=== PATIENT | female | born 1965 | race Caucasian/White ===

== ENCOUNTER 2017-04-19 08:00 | Day surgery (SDC) | payer SELFPAY ==
[2017-04-19 08:30] VITALS: TEMP 97.6
[2017-04-19] MEDS: ALPRAZolam 0.5 MG TAB PO ONE (08:49)
[2017-04-19 08:50] LABS: Mean Platelet Volume 7.1
[2017-04-19 09:02] LABS: Prothrombin Time 10.3 sec (9.0-12.0)
--- NOTE | 2017-04-19 09:57 | XR ---
EXAMINATION TYPE: XR chest 1V portable DATE OF EXAM: 04/19/2017 COMPARISON: April 14, 2017 HISTORY: Left-sided thoracentesis TECHNIQUE: Single frontal view of the chest is obtained. FINDINGS: Since the prior study there has been prominent reduction in the volume of the left pleural effusion. There is no pneumothorax. The mediastinum is midline. On the right, there is a small pleural effusion. Lungs are negative, other than nonvisualization of the lower lobes due to the pleural effusions, left greater than right. Mediastinum and bones and soft tissues are also unremarkable. IMPRESSION: POST LEFT THORACENTESIS, WITHOUT PNEUMOTHORAX.
--- NOTE | 2017-04-19 10:05 | US ---
810 cc's of fluid drained from left chest by Dr. Ramos Ultrasound-guided therapeutic and diagnostic thoracentesis DATE OF EXAM: 04/19/2017 CLINICAL HISTORY: Thoracentesis for left pleural effusion The procedure was discussed with the patient. The risks, complications, benefits, and alternatives we re discussed and any questions were answered. Informed consent was obtained. The patient was placed supine on the ultrasound table and prepped and draped in the usual sterile fas hion. All elements of maximal barrier and sterile technique were utilized. Under ultrasound guidance, access into the pleural space was obtained, via the thoracentesis catheter system and direct ultrasound guidance. Ap proximately 0.75 liters of straw-colored fluid was removed. The patient was stable throughout the procedure and remained stable upon discharge from Department of Radiology. Sample sent to pathology for analysis. IMPRESSION: 1. Successful therapeutic and diagnostic thoracentesis under ultrasound guidance.
[2017-04-19 10:28] VITALS: BP 118/74; PULSE 76; RESP 16
[2017-04-19 13:57] LABS: RBC, Body Fluid 38 /uL
[2017-04-19 15:59] LABS: Glucose, BF Source Pleural Fluid; LDH, Body Fluid Source Pleural Fluid; T. Protein, Body Fluid Source Pleural Fluid; Total Protein, Body Fluid 3200 mg/dL
== END 2017-04-19 10:39 | disposition home or self-care (01) ==
LOC: RADPROMAIN 08:00
PROVIDERS: ATTEND Internal Medicine Critical Care Medicine
DX: J90 Pleural effusion, not elsewhere classified (principal); C77.9 Secondary and unspecified malignant neoplasm of lymph node, unspecified; Z85.3 Personal history of malignant neoplasm of breast
CPT/HCPCS: 32555; 71010; 82945; 83615; 84157; 85049; 85610; 87070; 87075; 87205; 88108; 88305; 88341; 88342; 89050

== ENCOUNTER 2021-02-18 09:07 | Day surgery (SDC) | payer MEDICARE, OTHER ==
[2021-02-18 09:46] LABS: Mean Platelet Volume 7.3; Platelet Count 272 k/uL (150-450)
[2021-02-18 09:53] LABS: Prothrombin Time 10.6 sec (9.0-12.0)
[2021-02-18 10:06] VITALS: RESP 18; TEMP 97.9
--- NOTE | 2021-02-18 11:13 | XR ---
EXAMINATION TYPE: XR chest 1V portable DATE OF EXAM: 02/18/2021 COMPARISON: This x-ray 04/19/2017 HISTORY: Left pleural effusion, status post thoracentesis TECHNIQUE: Single frontal view of the chest is obtained. FINDINGS: Findings are similar to prior exam. Catheter was placed in the interval, distal tip coursi ng towards the right atrium. There is improved visualization of the right costophrenic angle. No evid ent pneumothorax. No other significant interval change. IMPRESSION: No evident complication status post left thoracentesis
[2021-02-18 11:44] VITALS: BP 105/64; PULSE 67
--- NOTE | 2021-02-18 16:23 | US ---
EXAMINATION TYPE: US thoracentesis DATE OF EXAM: 02/18/2021 COMPARISON: NONE HISTORY: Pleural effusion. FINDINGS: Maximal barrier technique was utilized. The skin overlying a suitable pocket of fluid was localized and the overlying skin prepped and draped. Lidocaine was used for local anesthesia. Ultras ound was used with sterile technique. A 5 Swedish catheter over guide needle was advanced into the pl eural fluid collection using ultrasound guidance and the catheter advanced, needle removed. Approxim ately 0.5 liter(s) of serous fluid was removed. Catheter was withdrawn and hemostasis achieved. The re is no immediate complication. The patient discharged in stable condition without complication. IMPRESSION: STATUS POST ULTRASOUND GUIDED THORACENTESIS, POST PROCEDURE CHEST X-RAY PENDING. THIS GA OCEDURE WAS PERFORMED BY THE UNDERSIGNED.
== END 2021-02-18 11:40 | disposition home or self-care (01) ==
LOC: RADPROMAIN 09:07
PROVIDERS: ATTEND Internal Medicine Medical Oncology
DX: J90 Pleural effusion, not elsewhere classified (principal)
CPT/HCPCS: 32555; 36415; 71045; 85049; 85610

== ENCOUNTER → 2022-04-14 | Outpatient (CLI) | payer MEDICARE, OTHER ==
--- NOTE | 2022-04-15 10:10 | CA ---
Transthoracic Echo Report Name: Sherice Estevez Age: 57 Gender: F : 1965 Exam Date: 04/14/2022 11:59 Exam Location: [place] [facility] Ht (in): 66 Wt (lb): 170 Ordering Physician: Eduardo Mari MD Attending/Referring Phys: Toy Assembler Wood Donna Stephens RDCS Procedure CPT: Indications: Z01.818 PREPROCEDUREAL EXAM Cardiac Hx: Technical Quality: Fair Contrast 1: Total Dose (mL): Contrast 2: Total Dose (mL): MEASUREMENTS (Male / Female) Normal Values 2D ECHO LV Diastolic Diameter PLAX 4.1 cm 4.2 - 5.9 / 3.9 - 5.3 cm LV Systolic Diameter PLAX 2.9 cm IVS Diastolic Thickness 0.9 cm 0.6 - 1.0 / 0.6 - 0.9 cm LVPW Diastolic Thickness 1.1 cm 0.6 - 1.0 / 0.6 - 0.9 cm LV Relative Wall Thickness 0.5 RV Internal Dim ED PLAX 3.4 cm LA Volume 41.8 cm??? 18 - 58 / 22 - 52 cm??? M-MODE Aortic Root Diameter MM 2.7 cm LA Systolic Diameter MM 2.7 cm LA Ao Ratio MM 1.0 AV Cusp Separation MM 1.8 cm DOPPLER LVOT Peak Velocity 101.4 cm/s LVOT Peak Gradient 4.1 mmHg MV Area PHT 4.5 cm??? Mitral E Point Velocity 53.7 cm/s Mitral A Point Velocity 65.7 cm/s Mitral E to A Ratio 0.8 MV Deceleration Time 169.5 ms TR Peak Velocity 205.0 cm/s TR Peak Gradient 16.8 mmHg Right Ventricular Systolic Press 21.8 mmHg FINDINGS Left Ventricle Normal Left ventricular size, wall thickness, systolic function with no obvious regional wall motion abnormalities. Normal Left ventricular diastolic filling pattern. Left ventricular ejection fraction is estimated at 50 to 55% Right Ventricle Mild right ventricular dilatation. Right ventricular systolic pressure within normal limits. Right Atrium Normal right atrial size. Left Atrium Normal left atrial size. No evidence for an atrial septal defect. Mitral Valve Structurally normal mitral valve. No mitral stenosis, regurgitation or prolapse. Aortic Valve Trileaflet aortic valve. No aortic valve stenosis or regurgitation. Tricuspid Valve Structurally normal tricuspid valve. Trace to mild tricuspid regurgitation. Pulmonic Valve Trace pulmonic regurgitation. Pericardium No pericardial effusion. Aorta Normal size aortic root and proximal ascending aorta. CONCLUSIONS #1. Normal left ventricular size with preserved LV function. #2. Mild right ventricular dilatation. #3. Normal valvular excursion Previewed by: Dr. Caitlin Mayers MD (Electronically Signed) Final Date: 15 April 2022 10:09
== END | disposition home or self-care (01) ==
LOC: RADECHMAIN 11:59
PROVIDERS: ATTEND Internal Medicine Hematology & Oncology
DX: I51.7 Cardiomegaly (principal)
CPT/HCPCS: 93306

== ENCOUNTER → 2023-02-21 | Outpatient (CLI) | payer MEDICARE, OTHER ==
--- NOTE | 2023-02-21 18:04 | CA ---
Transthoracic Echo Report Name: Sherice Estevez Age: 58 Gender: F : 1965 Exam Date: 02/21/2023 13:25 Exam Location: [place] [facility] Ht (in): 66 Wt (lb): 168 Ordering Physician: Eduardo Mari MD Attending/Referring Phys: Computer Assembler Donna Stephens RDCS Procedure CPT: Indications: Z01.818 Chemo Cardiac Hx: Technical Quality: Fair Contrast 1: Total Dose (mL): Contrast 2: Total Dose (mL): MEASUREMENTS (Male / Female) Normal Values 2D ECHO LV Diastolic Diameter PLAX 4.4 cm 4.2 - 5.9 / 3.9 - 5.3 cm LV Systolic Diameter PLAX 3.2 cm IVS Diastolic Thickness 1.0 cm 0.6 - 1.0 / 0.6 - 0.9 cm LVPW Diastolic Thickness 1.0 cm 0.6 - 1.0 / 0.6 - 0.9 cm LV Relative Wall Thickness 0.5 RV Internal Dim ED PLAX 3.6 cm LA Volume 64.0 cm??? 18 - 58 / 22 - 52 cm??? M-MODE Aortic Root Diameter MM 2.7 cm LA Systolic Diameter MM 3.4 cm LA Ao Ratio MM 1.3 AV Cusp Separation MM 2.0 cm DOPPLER AV Peak Velocity 120.3 cm/s AV Peak Gradient 5.8 mmHg AV Mean Velocity 81.6 cm/s AV Mean Gradient 2.9 mmHg AV Velocity Time Integral 23.6 cm LVOT Peak Velocity 107.3 cm/s LVOT Peak Gradient 4.6 mmHg LVOT Velocity Time Integral 19.7 cm MV Area PHT 2.7 cm??? Mitral E Point Velocity 49.5 cm/s Mitral A Point Velocity 49.1 cm/s Mitral E to A Ratio 1.0 MV Deceleration Time 285.8 ms MV E' Velocity 6.8 cm/s Mitral E to MV E' Ratio 7.3 TR Peak Velocity 219.2 cm/s TR Peak Gradient 19.2 mmHg Right Ventricular Systolic Press 23.9 mmHg FINDINGS Left Ventricle Mildly increased left ventricular wall thickness. Left ventricular cavity size normal. Normal left ventricular systolic function with no obvious regional wall motion abnormalities. Left ventricular ejection fraction is estimated at 55- 60%. Right Ventricle Mild right ventricular dilatation. Right ventricular systolic pressure within normal limits. Right Atrium Normal right atrial size. Left Atrium Moderately increased left atrial volume. Mildly increased left atrial area. Mitral Valve Structurally normal mitral valve. Trace to mild mitral regurgitation. Aortic Valve Trileaflet aortic valve. No aortic valve stenosis or regurgitation. Tricuspid Valve Structurally normal tricuspid valve. Mild tricuspid regurgitation. Pulmonic Valve Trace pulmonic regurgitation. Pericardium No pericardial effusion. Aorta Normal size aortic root and proximal ascending aorta. CONCLUSIONS Normal LV systolic function with an ejection fraction of 60% Left atrial enlargement Mild mitral regurgitation Previewed by: Dr. Enrrique Singh MD (Electronically Signed) Final Date: 21 February 2023 18:03
== END | disposition home or self-care (01) ==
LOC: RADECHMAIN 13:21
PROVIDERS: ATTEND Internal Medicine Hematology & Oncology
DX: Z01.818 Encounter for other preprocedural examination (principal); I34.0 Nonrheumatic mitral (valve) insufficiency; C50.811 Malignant neoplasm of overlapping sites of right female breast; G62.0 Drug-induced polyneuropathy; R53.82 Chronic fatigue, unspecified; D51.9 Vitamin B12 deficiency anemia, unspecified
CPT/HCPCS: 93306

== ENCOUNTER → 2023-05-13 | Outpatient (CLI) | payer MEDICARE, OTHER ==
--- NOTE | 2023-05-14 13:49 | PE ---
EXAMINATION TYPE: PET CT fusion skull to thigh DATE OF EXAM: 05/13/2023 CLINICAL INDICATION:Female, 58 years old with history of C50.811; TECHNIQUE: Following the intravenous administration of 11.3 mCi of F-18 FDG, whole body images are performed from the skull base to the midthigh. Images are reviewed on the computer in the coronal, a xial, and sagittal planes. Reconstructed rotating images are created on independent workstation and reviewed on the computer. A non-contrast CT is performed in conjunction with the PET scan. Glucose level 81 mg/dL COMPARISON: CT None, PET/CT None, FINDINGS: Mediastinal SUV mean is 1.6. Hepatic parenchyma SUV mean is 2.6. SKULL BASE AND NECK: No suspicious radiotracer activity. CHEST, MEDIASTINUM, AND HILAR REGION: No suspicious radiotracer activity. ABDOMEN AND PELVIS: No suspicious radiotracer activity. MUSCULOSKELETAL STRUCTURES: No suspicious radiotracer activity. Right sacroiliac sclerotic lesion krysten suring 24 x 18 mm Max SUV 1.2. Other areas of sclerotic likely metastatic disease do not demonstrate increased FDG activity including areas of the spine including T6 and T7 vertebral bodies are in metab olic. Max SUV 1.6 and [address]: Bilateral breast implants which appear intact. There is left chest wall [id number] with tip terminating in the superior vena cava. Trace left pleural effusion.7 streaky atelectasis in lung bases. IMPRESSION: 1. No suspicious radiotracer activity. 2. Sclerotic areas within the osseous structures including T6, T7 vertebral body and the the right i liac bone are without elevated metabolic activity . No evidence for lymphadenopathy.
== END | disposition home or self-care (01) ==
LOC: RADPETMAIN 15:36
PROVIDERS: ATTEND Internal Medicine Hematology & Oncology
DX: C50.811 Malignant neoplasm of overlapping sites of right female breast (principal)
CPT/HCPCS: 78815; A9552

== ENCOUNTER → 2023-09-13 | Outpatient (CLI) | payer MEDICARE, OTHER ==
--- NOTE | 2023-09-14 07:18 | CA ---
Transthoracic Echo Report Name: Sherice Estevez Age: 58 Gender: F : 1965 Exam Date: 09/13/2023 13:11 Exam Location: [place] [facility] Ht (in): 66 Wt (lb): 159 Ordering Physician: Eduardo Mari MD Attending/Referring Phys: Mechanical Pencils Assembler Jennifer Rivas RDCS Procedure CPT: Indications: C50.811 breast ca Cardiac Hx: Technical Quality: Good Contrast 1: Total Dose (mL): Contrast 2: Total Dose (mL): MEASUREMENTS (Male / Female) Normal Values 2D ECHO LV Diastolic Diameter PLAX 4.3 cm 4.2 - 5.9 / 3.9 - 5.3 cm LV Systolic Diameter PLAX 3.1 cm IVS Diastolic Thickness 1.0 cm 0.6 - 1.0 / 0.6 - 0.9 cm LVPW Diastolic Thickness 1.1 cm 0.6 - 1.0 / 0.6 - 0.9 cm LV Relative Wall Thickness 0.5 RV Internal Dim ED PLAX 3.0 cm LA Systolic Diameter LX 3.5 cm 3.0 - 4.0 / 2.7 - 3.8 cm LV Diastolic Volume MOD BP 72.7 cm??? 67 - 155 / 56 - 104 cm??? LV Systolic Volume MOD BP 38.3 cm??? 22 - 58 / 19 - 49 cm??? LV Ejection Fraction MOD BP 47.2 % >= 55 % LV Cardiac Index MOD BP 1060.8 cm???/min???m??? LV Diastolic Volume MOD 4C 75.5 cm??? LV Systolic Volume MOD 4C 27.5 cm??? LV Ejection Fraction MOD 4C 63.6 % LV Cardiac Index MOD 4C 1484.8 cm???/min???m??? LV Diastolic Length 4C 7.2 cm LV Systolic Length 4C 5.8 cm LV Diastolic Volume MOD 2C 67.5 cm??? LV Systolic Volume MOD 2C 45.8 cm??? LV Ejection Fraction MOD 2C 32.2 % LV Cardiac Index MOD 2C 672.5 cm???/min???m??? LV Diastolic Length 2C 6.9 cm LV Systolic Length 2C 6.8 cm LA Volume 50.5 cm??? 18 - 58 / 22 - 52 cm??? LA Volume Index 27.4 cm???/m??? 16 - 28 cm???/m??? M-MODE Aortic Root Diameter MM 3.0 cm MV E Point Septal Separation 0.8 cm AV Cusp Separation MM 2.2 cm DOPPLER AV Peak Velocity 115.3 cm/s AV Peak Gradient 5.3 mmHg MV Area PHT 2.8 cm??? Mitral E Point Velocity 69.0 cm/s Mitral A Point Velocity 55.6 cm/s Mitral E to A Ratio 1.2 MV Deceleration Time 267.1 ms MV E' Velocity 11.1 cm/s Mitral E to MV E' Ratio 6.2 TR Peak Velocity 217.6 cm/s TR Peak Gradient 18.9 mmHg Right Ventricular Systolic Press 22.8 mmHg FINDINGS Left Ventricle Left ventricular ejection fraction is estimated at 55-60 %. Left ventricular cavity size normal. Good LV systolic strain, -21%.normal left ventricular wall motion. Normal left ventricular diastolic filling pattern. Right Ventricle Normal right ventricular size. Right ventricular systolic pressure within normal limits. Right Atrium Normal right atrial size. Left Atrium Normal left atrial size. Mitral Valve Structurally normal mitral valve. mild mitral regurgitation. Aortic Valve Trileaflet aortic valve. No aortic valve stenosis or regurgitation. Tricuspid Valve Structurally normal tricuspid valve. mild tricuspid regurgitation. Pulmonic Valve Structurally normal pulmonic valve. Trace pulmonic regurgitation. Pericardium No pericardial effusion. Aorta Normal size aortic root and proximal ascending aorta. CONCLUSIONS 1. Normal left ventricular systolic function 2. Mild mitral and tricuspid regurgitation with no evidence of pulmonary hypertension Previewed by: Dr. Deena Mendes MD (Electronically Signed) Final Date: 14 September 2023 07:18
== END | disposition home or self-care (01) ==
LOC: RADECHMAIN 13:08
PROVIDERS: ATTEND Internal Medicine Hematology & Oncology
DX: Z01.818 Encounter for other preprocedural examination (principal); C50.811 Malignant neoplasm of overlapping sites of right female breast; I08.1 Rheumatic disorders of both mitral and tricuspid valves
CPT/HCPCS: 93306

== ENCOUNTER → 2023-09-16 | Outpatient (CLI) | payer MEDICARE, OTHER ==
--- NOTE | 2023-09-19 10:28 | PE ---
EXAMINATION TYPE: PET CT fusion skull to thigh DATE OF EXAM: 09/16/2023 COMPARISON: No recent pertinent CT. Prior PET/CT: 05/13/2023 HISTORY: Breast cancer TECHNIQUE: Following the intravenous administration of 10 mCi of F-18 FDG, whole body images are per formed from the skull base to the midthigh. Images are reviewed on the computer in the coronal, axia l, and sagittal planes. Reconstructed rotating images are created on independent workstation and rev iewed on the computer. A localization and attenuation correction CT is performed in conjunction wit h the PET scan. DLP: 285.80 mGycm SCAN: Subsequent Blood glucose: 88 mg/dL Average Mediastinum SUV: 2.3 Average Liver SUV: 1.54 FINDINGS: NECK: There is some focal uptake within the prevertebral space. Image 14, SUV 4.04. There is increased uptake at the level of the vocal cords. This could be related to phonation. Direc t visualization can be performed as clinically indicated. THORAX: There is a focus of radiotracer within the right suprahilar region, image 79, SUV 3.65. There may be some subtle left hilar uptake, image 82, SUV 3.66. ABDOMEN: No abnormal uptake PELVIS: No abnormal uptake OSSEOUS STRUCTURES: Normal abnormal uptake LOCALIZATION CT: Bilateral breast prostheses are present. COMPARISON: Significant interval change. The uptake in the hilar regions slightly more apparent on th e current examination which may be technical in nature. IMPRESSION: 1. Subtle uptake within the bilateral hilar regions. This is nonspecific and could be related to mild inflammatory change. Early metastasis is not excluded. Monitoring is recommended. 2. Uptake at the level of vocal cord level likely related formation. Direct visualization as clinical ly indicated. 3. Focal uptake in the prevertebral space near the level of the torus tubarius and uncertain signific ance.
== END | disposition home or self-care (01) ==
LOC: RADPETMAIN 07:53
PROVIDERS: ATTEND Internal Medicine Hematology & Oncology
DX: C50.811 Malignant neoplasm of overlapping sites of right female breast (principal); R93.7 Abnormal findings on diagnostic imaging of other parts of musculoskeletal system
CPT/HCPCS: 78815; A9552

== ENCOUNTER → 2023-11-01 | Outpatient (CLI) | payer MEDICARE, OTHER ==
--- NOTE | 2023-11-03 15:17 | MR ---
EXAMINATION TYPE: MR brain wo/w con DATE OF EXAM: 11/01/2023 6:43 PM CLINICAL INDICATION:Female, 58 years old with history of C50.811; PHH, Blurry vision for a few months , Breast cancer. COMPARISON: None TECHNIQUE: Multi planar, multi sequence imaging was performed through the brain including: T1, T2, In version recovery, susceptibility weighted imaging and gradient echo imaging and Diffusion weighted im aging. The patient was then given intravenous contrast and multi planar, T1 fat-saturation images wer e obtained. IV Contrast: 7.5 cc Gadobutrol FINDINGS: The estrada-white junctions, ventricular system, basal cisterns appear unremarkable. Diffusion-weighted imaging shows no evidence of restricted diffusion to suggest acute/subacute infarct. Intracranial ar terial flow voids are maintained. Midline structures show no abnormality. Minimal scattered foci of h igh T2 signal intensity are seen within the periventricular white matter. The susceptibility weighted images do not reveal any evidence for micro-hemorrhage. After administration of gadolinium, no abnor mal enhancement is seen. The bone marrow signal is within normal limits. Paranasal sinuses and mastoid air cells: No significant paranasal sinus disease. Visualized orbits: Orbital contents are intact. IMPRESSION: 1. No evidence of intracranial mass, acute/subacute infarct, or abnormal enhancement. 2. Nonspecific white matter changes, likely related to small vessel ischemic disease.
== END | disposition home or self-care (01) ==
LOC: RADMRIMAIN 17:37
PROVIDERS: ATTEND Internal Medicine Hematology & Oncology
DX: G93.89 Other specified disorders of brain (principal); C50.811 Malignant neoplasm of overlapping sites of right female breast; H53.8 Other visual disturbances
CPT/HCPCS: 70553; A9585

== ENCOUNTER → 2024-02-09 | Outpatient (CLI) | payer MEDICARE, OTHER ==
--- NOTE | 2024-02-09 17:28 | PE ---
EXAMINATION TYPE: PET CT fusion skull to thigh DATE OF EXAM: 02/09/2024 CLINICAL INDICATION:Female, 59 years old with history of C50.811 Malig neoplasm right female breast; TECHNIQUE: Following the intravenous administration of 8.04 mCi of F-18 FDG, whole body images are performed from the skull base to the midthigh. Images are reviewed on the computer in the coronal, a xial, and sagittal planes. Reconstructed rotating images are created on independent workstation and reviewed on the computer. A non-contrast CT is performed in conjunction with the PET scan. Glucose level 88 mg/dL CT DLP: 356 mGycm, Automated exposure control for dose reduction was used. COMPARISON: CT None, PET/CT 09/16/2023, FINDINGS: Mediastinal SUV mean is 2.3. Hepatic parenchyma SUV mean is 3.1. SKULL BASE AND NECK: No suspicious radiotracer activity. CHEST, MEDIASTINUM, AND HILAR REGION: * Right hilar lymph node max SUV 5.7, previously 4.2 * Left hilar lymph node max SUV 4.2, previously 3.7 ABDOMEN AND PELVIS: No suspicious radiotracer activity. MUSCULOSKELETAL STRUCTURES: No suspicious radiotracer activity. Right sacroiliac sclerotic lesion measuring 24 x 18 mm Max SUV 1.2. Other areas of sclerotic likely metastatic disease do not demonstrate increased FDG activity includin g areas of the spine including T6 and T7 vertebral bodies are in Max SUV 3.6, previously 3.2 for T6 a nd 3.1, previously 2.7 for T7 . No focal areas of uptake visualized within these vertebral bodies. OTHER CT: Bilateral breast implants which appear intact. There is left chest wall [id number] with tip terminating in the superior vena cava. Trace left pleural effusion. Streaky atelectasis in lung b ases. IMPRESSION: 1. Bilateral perihilar lymph nodes which have increased from prior FDG activity. Findings favor infl ammation change with malignancy felt to be less likely. Continued surveillance recommended. 2. Stable Sclerotic areas within the osseous structures including T6, T7 vertebral body and the the right iliac bone. The FDG activity in the spine may be mildly increased to most recent prior which co uld partially be due to technique. No focal uptake definitively visualized on these vertebral bodies.
== END | disposition home or self-care (01) ==
LOC: RADPETMAIN 10:25
PROVIDERS: ATTEND Internal Medicine Hematology & Oncology
DX: C50.811 Malignant neoplasm of overlapping sites of right female breast (principal); M89.8X8 Other specified disorders of bone, other site
CPT/HCPCS: 78815; A9552

== ENCOUNTER → 2024-02-10 | Outpatient (CLI) | payer MEDICARE, OTHER ==
--- NOTE | 2024-02-11 12:45 | CA ---
Transthoracic Echo Report Name: Sherice Estevez Age: 59 Gender: F : 1965 Exam Date: 02/10/2024 13:59 Exam Location: [place] [facility] Ht (in): 66 Wt (lb): 162 Ordering Physician: Eduardo Mari MD Attending/Referring Phys: Locksmith Helper Donna Stephens RDCS Procedure CPT: Indications: Z01.818 ENCOUNTER FOR OTHER PREPROCEDURAL EXAMINAT Cardiac Hx: Technical Quality: Fair Contrast 1: Total Dose (mL): Contrast 2: Total Dose (mL): MEASUREMENTS (Male / Female) Normal Values 2D ECHO LV Diastolic Diameter PLAX 3.6 cm 4.2 - 5.9 / 3.9 - 5.3 cm LV Systolic Diameter PLAX 2.5 cm IVS Diastolic Thickness 1.3 cm 0.6 - 1.0 / 0.6 - 0.9 cm LVPW Diastolic Thickness 1.2 cm 0.6 - 1.0 / 0.6 - 0.9 cm LV Relative Wall Thickness 0.7 RV Internal Dim ED PLAX 3.7 cm LA Volume 31.1 cm??? 18 - 58 / 22 - 52 cm??? LA Volume Index 16.7 cm???/m??? 16 - 28 cm???/m??? M-MODE Aortic Root Diameter MM 2.8 cm LA Systolic Diameter MM 3.2 cm LA Ao Ratio MM 1.1 AV Cusp Separation MM 2.0 cm DOPPLER AV Peak Velocity 117.2 cm/s AV Peak Gradient 5.5 mmHg AV Mean Velocity 83.6 cm/s AV Mean Gradient 3.0 mmHg AV Velocity Time Integral 22.6 cm LVOT Peak Velocity 93.8 cm/s LVOT Peak Gradient 3.5 mmHg LVOT Velocity Time Integral 17.1 cm MV Area PHT 5.2 cm??? Mitral E Point Velocity 46.2 cm/s Mitral A Point Velocity 63.2 cm/s Mitral E to A Ratio 0.7 MV Deceleration Time 146.8 ms MV E' Velocity 7.4 cm/s Mitral E to MV E' Ratio 6.2 TR Peak Velocity 157.9 cm/s TR Peak Gradient 10.0 mmHg Right Ventricular Systolic Press 15.0 mmHg FINDINGS Left Ventricle Mildly increased left ventricular wall thickness. Left ventricular cavity size normal. Normal left ventricular systolic function with no obvious regional wall motion abnormalities. Left ventricular ejection fraction is estimated at 55-60 %. Right Ventricle Mild right ventricular dilatation. Right ventricular systolic pressure within normal limits. Right Atrium Normal right atrial size. Left Atrium Normal left atrial size. Mitral Valve Structurally normal mitral valve. No mitral stenosis, regurgitation or prolapse. Aortic Valve Trileaflet aortic valve. No aortic valve stenosis or regurgitation. Tricuspid Valve Structurally normal tricuspid valve. Mild tricuspid regurgitation. Pulmonic Valve Structurally normal pulmonic valve. Pericardium Small pericardial effusion. Pericardial effusion located posteriorly. Aorta Normal size aortic root and proximal ascending aorta. CONCLUSIONS Normal LV function Previewed by: Dr. Enrrique Singh MD (Electronically Signed) Final Date: 11 February 2024 12:44
== END | disposition home or self-care (01) ==
LOC: RADECHMAIN 13:55
PROVIDERS: ATTEND Internal Medicine Hematology & Oncology
DX: Z01.818 Encounter for other preprocedural examination (principal); C50.811 Malignant neoplasm of overlapping sites of right female breast; G62.0 Drug-induced polyneuropathy; D51.9 Vitamin B12 deficiency anemia, unspecified; R53.82 Chronic fatigue, unspecified; Z71.3 Dietary counseling and surveillance
CPT/HCPCS: 93306

== ENCOUNTER → 2024-08-07 | Outpatient (CLI) | payer MEDICARE, OTHER ==
--- NOTE | 2024-08-07 10:27 | CA ---
Transthoracic Echo Report Name: Sherice Estevez Age: 59 Gender: F : 1965 Exam Date: 08/07/2024 08:50 Exam Location: [place] [facility] Ht (in): 66 Wt (lb): 174 Ordering Physician: Eduardo Mari MD Attending/Referring Phys: International Manager Jennifer Rivas RDCS Procedure CPT: Indications: R53.82 CHRONIC FATIGUE, UNSPECIFIED Cardiac Hx: Technical Quality: Good Contrast 1: Total Dose (mL): Contrast 2: Total Dose (mL): MEASUREMENTS (Male / Female) Normal Values 2D ECHO LV Diastolic Diameter PLAX 5.1 cm 4.2 - 5.9 / 3.9 - 5.3 cm LV Systolic Diameter PLAX 3.7 cm IVS Diastolic Thickness 0.8 cm 0.6 - 1.0 / 0.6 - 0.9 cm LVPW Diastolic Thickness 1.0 cm 0.6 - 1.0 / 0.6 - 0.9 cm LV Relative Wall Thickness 0.3 RV Internal Dim ED PLAX 3.4 cm LA Systolic Diameter LX 3.2 cm 3.0 - 4.0 / 2.7 - 3.8 cm LV Diastolic Volume MOD 4C 91.2 cm??? LV Systolic Volume MOD 4C 38.0 cm??? LV Ejection Fraction MOD 4C 58.3 % LV Cardiac Index MOD 4C 2005.4 cm???/min???m??? LV Diastolic Length 4C 8.6 cm LV Systolic Length 4C 7.0 cm LV Diastolic Volume MOD 2C 109.9 cm??? LV Systolic Volume MOD 2C 46.4 cm??? LV Ejection Fraction MOD 2C 57.8 % LV Cardiac Index MOD 2C 2392.4 cm???/min???m??? LV Diastolic Length 2C 8.3 cm LV Systolic Length 2C 6.7 cm M-MODE Aortic Root Diameter MM 3.5 cm LA Systolic Diameter MM 2.3 cm LA Ao Ratio MM 0.7 DOPPLER AV Peak Velocity 119.8 cm/s AV Peak Gradient 5.7 mmHg Mitral E Point Velocity 71.3 cm/s Mitral A Point Velocity 91.8 cm/s Mitral E to A Ratio 0.8 MV Deceleration Time 224.2 ms TR Peak Velocity 194.0 cm/s TR Peak Gradient 15.0 mmHg Right Ventricular Systolic Press 25.0 mmHg FINDINGS Left Ventricle Left ventricular ejection fraction is estimated at 55-60 %. Left ventricular cavity size normal. Left ventricular wall thickness normal. Normal left ventricular wall motion. Good systolic strain Right Ventricle Mild right ventricular dilatation. Right ventricular systolic pressure within normal limits. Right Atrium Normal right atrial size. No right atrial thrombus or mass seen. Left Atrium Normal left atrial size. No left atrial thrombus or mass present. Mitral Valve Structurally normal mitral valve. No mitral stenosis, regurgitation or prolapse. Aortic Valve Trileaflet aortic valve. No aortic valve stenosis or regurgitation. Tricuspid Valve Structurally normal tricuspid valve. Mild tricuspid regurgitation. Pulmonic Valve Structurally normal pulmonic valve. Mild pulmonic regurgitation. Pericardium No pericardial or pleural effusion. Aorta Normal size aortic root and proximal ascending aorta. CONCLUSIONS Normal LV function Previewed by: Dr. Enrrique Singh MD (Electronically Signed) Final Date: 07 August 2024 10:26
== END | disposition home or self-care (01) ==
LOC: RADECHMAIN 08:31
PROVIDERS: ATTEND Internal Medicine Hematology & Oncology
DX: C50.811 Malignant neoplasm of overlapping sites of right female breast (principal); R53.82 Chronic fatigue, unspecified
CPT/HCPCS: 93306

== ENCOUNTER → 2024-08-09 | Outpatient (CLI) | payer MEDICARE, OTHER ==
--- NOTE | 2024-08-11 14:39 | PE ---
EXAMINATION TYPE: PET CT fusion skull to thigh DATE OF EXAM: 08/09/2024 CLINICAL INDICATION:Female, 59 years old with history of C50.811 breast ca; TECHNIQUE: Following the intravenous administration of 13.4 mCi of F-18 FDG, whole body images are performed from the skull base to the midthigh. Images are reviewed on the computer in the coronal, a xial, and sagittal planes. Reconstructed rotating images are created on independent workstation and reviewed on the computer. A non-contrast CT is performed in conjunction with the PET scan. Glucose level 87 mg/dL CT DLP: 3 3.97 mGycm, Automated exposure control for dose reduction was used. COMPARISON: CT None, PET/CT 02/09/2024, MRI: None FINDINGS: FINDINGS: Mediastinal SUV mean is 2.4. Hepatic parenchyma SUV mean is 3.1. SKULL BASE AND NECK: No suspicious radiotracer activity. CHEST, MEDIASTINUM, AND HILAR REGION: * Right hilar lymph node max SUV 3.3, previously 5.7, 4.2 * Left hilar lymph node max SUV 3.7, previously 4.2, 3.7 ABDOMEN AND PELVIS: No suspicious radiotracer activity. MUSCULOSKELETAL STRUCTURES: No suspicious radiotracer activity. Right the iliac crest sclerotic lesion measuring 24 x 18 mm Max SUV 2.1, previously 1.2. Other areas of sclerotic likely metastatic disease do not demonstrate increased FDG activity includin g areas of the spine including T6 and T7 vertebral bodies max SUV in the areas 3.6. No focal areas of uptake visualized within these vertebral bodies. OTHER CT: Bilateral breast implants which appear intact. There is left chest wall [id number] with tip terminating in the superior vena cava. Trace left pleural effusion. Streaky atelectasis in lung b ases. IMPRESSION: 1. Bilateral perihilar lymph nodes which have slightly decreased in FDG activity. Findings continue to favor inflammation change with malignancy felt to be less likely. Continued surveillance recommend ed. 2. Stable Sclerotic areas within the osseous structures including T6, T7 vertebral body and the the right iliac bone. . [facility], Workstation: [id number], 08/11/2024 2:36 PM
== END | disposition home or self-care (01) ==
LOC: RADPETMAIN 10:27
PROVIDERS: ATTEND Internal Medicine Hematology & Oncology
DX: C50.811 Malignant neoplasm of overlapping sites of right female breast (principal); Z85.3 Personal history of malignant neoplasm of breast
CPT/HCPCS: 78815; A9552

== ENCOUNTER → 2024-11-08 | Outpatient (CLI) | payer MEDICARE, OTHER ==
--- NOTE | 2024-11-08 16:18 | PE ---
EXAMINATION TYPE: PET CT fusion skull to thigh DATE OF EXAM: 11/08/2024 CLINICAL INDICATION:Female, 59 years old with history of C50.811 BREAST CANCER; TECHNIQUE: Following the intravenous administration of 11.39 mCi of F-18 FDG, whole body images are performed from the skull base to the midthigh. Images are reviewed on the computer in the coronal, axial, and sagittal planes. Reconstructed rotating images are created on independent workstation and reviewed on the computer. A non-contrast CT is performed in conjunction with the PET scan. Glucose level 89 mg/dL CT DLP: 388.29 mGycm, Automated exposure control for dose reduction was used. COMPARISON: CT None, PET/CT 08/09/2024, 02/09/2024, 09/16/2023, 05/13/2023, MRI: 11/01/2023 FINDINGS: Mediastinal SUV mean is 1.8. Hepatic parenchyma SUV mean is 2.5. SKULL BASE AND NECK: No suspicious radiotracer activity. Mild FDG uptake within the right palatine tonsil with a maximum SUV of 6.6. Likely relate to inflamma tion/infection. CHEST, MEDIASTINUM, AND HILAR REGION: * Nonenlarged right hilar lymph node max SUV 5.0, previously 3.3, 5.7, 4.2. * Left hilar lymph node max SUV 3.1, previously 3.7, 4.2, 3.7. ABDOMEN AND PELVIS: No suspicious radiotracer activity. MUSCULOSKELETAL STRUCTURES: No suspicious radiotracer activity. Right the iliac crest sclerotic lesion measuring 26 x 16 mm with Max SUV 1.3, previously 2.1, 1.2. Other areas of sclerotic likely metastatic disease do not demonstrate increased FDG activity includin g areas of the spine including T6 and T7 vertebral bodies max SUV in the areas of 1.3, previously 3.6 . No focal areas of uptake visualized within these vertebral bodies. OTHER CT: Bilateral breast implants which appear intact. Postsurgical changes from right mastectomy. Left chest wall [id number] with tip terminating in the superior vena cava. Redemonstration of a sm all left pleural effusion. Streaky atelectasis/scarring in the lung bases. IMPRESSION: 1. Mild increase in radiotracer activity within a nonenlarged right hilar lymph node which is nonspe cific. Remaining bilateral hilar lymph nodes demonstrate decreased radiotracer activity near backgrou nd levels. Could represent early metastatic disease/recurrence versus inflammatory change. Continued surveillance recommended. 2. Stable sclerotic lesions within the osseous structures including T6, T7 vertebral body and the th e right iliac bone without suspicious FDG activity. [facility], , 11/08/2024 4:16 PM
== END | disposition home or self-care (01) ==
LOC: RADPETMAIN 10:55
PROVIDERS: ATTEND Internal Medicine Hematology & Oncology
DX: C50.811 Malignant neoplasm of overlapping sites of right female breast (principal); R93.7 Abnormal findings on diagnostic imaging of other parts of musculoskeletal system
CPT/HCPCS: 78815; A9552

== ENCOUNTER → 2024-11-08 | Outpatient (CLI) | payer MEDICARE, OTHER ==
--- NOTE | 2024-11-09 07:29 | CA ---
Transthoracic Echo Report Name: Sherice Estevez Age: 59 Gender: F : 1965 Exam Date: 11/08/2024 13:10 Exam Location: [facility] Ht (in): 66 Wt (lb): 163 Ordering Physician: Eduardo Mari MD Attending/Referring Phys: Perioperative Manager Laney Kay RDCS Procedure CPT: Indications: Z01.818 pre chemo Cardiac Hx: Technical Quality: Fair Contrast 1: Total Dose (mL): Contrast 2: Total Dose (mL): MEASUREMENTS (Male / Female) Normal Values 2D ECHO LV Diastolic Diameter PLAX 4.6 cm 4.2 - 5.9 / 3.9 - 5.3 cm LV Systolic Diameter PLAX 2.9 cm IVS Diastolic Thickness 1.0 cm 0.6 - 1.0 / 0.6 - 0.9 cm LVPW Diastolic Thickness 1.0 cm 0.6 - 1.0 / 0.6 - 0.9 cm LV Relative Wall Thickness 0.4 RV Internal Dim ED PLAX 2.4 cm LA Systolic Diameter LX 3.5 cm 3.0 - 4.0 / 2.7 - 3.8 cm LV Diastolic Volume MOD BP 65.1 cm??? 67 - 155 / 56 - 104 cm??? LV Systolic Volume MOD BP 30.6 cm??? 22 - 58 / 19 - 49 cm??? LV Ejection Fraction MOD BP 53.0 % >= 55 % LV Cardiac Index MOD BP 1235.2 cm???/min???m??? LV Diastolic Volume MOD 4C 70.7 cm??? LV Systolic Volume MOD 4C 30.9 cm??? LV Ejection Fraction MOD 4C 56.3 % LV Cardiac Index MOD 4C 1425.5 cm???/min???m??? LV Diastolic Length 4C 7.7 cm LV Systolic Length 4C 6.2 cm LV Diastolic Volume MOD 2C 54.6 cm??? LV Systolic Volume MOD 2C 27.7 cm??? LV Ejection Fraction MOD 2C 49.3 % LV Cardiac Index MOD 2C 964.9 cm???/min???m??? LV Diastolic Length 2C 6.9 cm LV Systolic Length 2C 5.6 cm LA Volume 41.8 cm??? 18 - 58 / 22 - 52 cm??? LA Volume Index 22.3 cm???/m??? 16 - 28 cm???/m??? M-MODE Aortic Root Diameter MM 2.9 cm LA Systolic Diameter MM 3.1 cm LA Ao Ratio MM 1.1 AV Cusp Separation MM 1.9 cm DOPPLER MV Area PHT 2.5 cm??? Mitral E Point Velocity 61.0 cm/s Mitral A Point Velocity 71.8 cm/s Mitral E to A Ratio 0.8 MV Deceleration Time 305.8 ms TR Peak Velocity 189.0 cm/s TR Peak Gradient 14.3 mmHg Right Ventricular Systolic Press 19.1 mmHg FINDINGS Left Ventricle Left ventricular ejection fraction is estimated at 50-55%. Mildly increased posterior wall thickness. Normal-mildly decreased left ventricular ejection fraction. No obvious regional wall motion abnormalities. Left ventricular cavity size normal. Right Ventricle Normal right ventricular size and function. Right ventricular systolic pressure within normal limits. Right Atrium Normal right atrial size. Left Atrium Normal left atrial size. Mitral Valve Structurally normal mitral valve. Trace mitral regurgitation. No mitral stenosis. Aortic Valve Trileaflet aortic valve. No aortic valve stenosis or regurgitation. No aortic stenosis. Tricuspid Valve Structurally normal tricuspid valve. No tricuspid stenosis. Trace to mild tricuspid regurgitation. Pulmonic Valve Structurally normal pulmonic valve. Trace pulmonic regurgitation. No pulmonic stenosis. Pericardium No pericardial or pleural effusion. Aorta Normal size aortic root and proximal ascending aorta. CONCLUSIONS This normal biventricular systolic function No significant valvular abnormalities noted Normal pulmonary artery systolic pressure No pericardial effusion Previewed by: Dr. Ethan Lora MD (Electronically Signed) Final Date: 09 November 2024 07:28
== END | disposition home or self-care (01) ==
LOC: RADECHMAIN 11:00
PROVIDERS: ATTEND Internal Medicine Hematology & Oncology
DX: Z01.818 Encounter for other preprocedural examination (principal); I34.0 Nonrheumatic mitral (valve) insufficiency; I07.1 Rheumatic tricuspid insufficiency; I37.1 Nonrheumatic pulmonary valve insufficiency; C50.811 Malignant neoplasm of overlapping sites of right female breast; G62.0 Drug-induced polyneuropathy; G47.00 Insomnia, unspecified; R53.82 Chronic fatigue, unspecified; Z71.3 Dietary counseling and surveillance
CPT/HCPCS: 93306

== ENCOUNTER → 2025-03-07 | Outpatient (CLI) | payer MEDICARE, OTHER ==
--- NOTE | 2025-03-07 13:30 | CA ---
Transthoracic Echo Report Name: Sherice Estevez Age: 60 Gender: F : 1965 Exam Date: 03/07/2025 11:35 Exam Location: [facility] Ht (in): 66 Wt (lb): 168 Ordering Physician: Eduardo Mair MD Attending/Referring Phys: Eduardo Mari MD [employer] Let Off Operator Jennifer Rivas RDCS Procedure CPT: Indications: Z01.818 Chemo Cardiac Hx: Technical Quality: Fair Contrast 1: Total Dose (mL): Contrast 2: Total Dose (mL): MEASUREMENTS (Male / Female) Normal Values 2D ECHO LV Diastolic Diameter PLAX 4.5 cm 4.2 - 5.9 / 3.9 - 5.3 cm LV Systolic Diameter PLAX 3.2 cm IVS Diastolic Thickness 1.0 cm 0.6 - 1.0 / 0.6 - 0.9 cm LVPW Diastolic Thickness 1.0 cm 0.6 - 1.0 / 0.6 - 0.9 cm LV Relative Wall Thickness 0.4 RV Internal Dim ED PLAX 3.5 cm LA Systolic Diameter LX 3.5 cm 3.0 - 4.0 / 2.7 - 3.8 cm LV Diastolic Volume MOD BP 112.7 cm??? 67 - 155 / 56 - 104 cm??? LV Systolic Volume MOD BP 48.1 cm??? - 58 / 19 - 49 cm??? LV Ejection Fraction MOD BP 57.3 % >= 55 % LV Cardiac Index MOD BP 2140.7 cm???/min???m??? LV Diastolic Volume MOD 4C 104.2 cm??? LV Systolic Volume MOD 4C 52.1 cm??? LV Ejection Fraction MOD 4C 50.0 % LV Cardiac Index MOD 4C 1726.8 cm???/min???m??? LV Diastolic Length 4C 7.9 cm LV Systolic Length 4C 6.4 cm LV Diastolic Volume MOD 2C 108.8 cm??? LV Systolic Volume MOD 2C 38.7 cm??? LV Ejection Fraction MOD 2C 64.4 % LV Cardiac Index MOD 2C 2325.1 cm???/min???m??? LV Diastolic Length 2C 8.9 cm LV Systolic Length 2C 7.5 cm LA Volume 45.6 cm??? 18 - 58 / 22 - 52 cm??? LA Volume Index 24.0 cm???/m??? 16 - 28 cm???/m??? M-MODE Aortic Root Diameter MM 2.9 cm AV Cusp Separation MM 2.5 cm DOPPLER AV Peak Velocity 113.7 cm/s AV Peak Gradient 5.2 mmHg MV Area PHT 3.1 cm??? Mitral E Point Velocity 67.5 cm/s Mitral A Point Velocity 78.8 cm/s Mitral E to A Ratio 0.9 MV Deceleration Time 241.0 ms TR Peak Velocity 196.5 cm/s TR Peak Gradient 15.5 mmHg Right Ventricular Systolic Press 20.5 mmHg FINDINGS Left Ventricle Left ventricular ejection fraction is estimated at 50-55 %. Mildly increased posterior wall thickness. Mildly increased left ventricular diastolic volume. Normal left ventricular wall motion. Left ventricular cavity size normal. Right Ventricle Mild right ventricular dilatation. Right ventricular systolic pressure within normal limits. Right Atrium Normal right atrial size. No right atrial thrombus or mass seen. Left Atrium Normal left atrial size. No left atrial thrombus or mass present. Mitral Valve Structurally normal mitral valve. No mitral stenosis, regurgitation or prolapse. Aortic Valve Trileaflet aortic valve. No aortic valve stenosis or regurgitation. Tricuspid Valve Structurally normal tricuspid valve. Trace to mild tricuspid regurgitation. Pulmonic Valve Structurally normal pulmonic valve. Trace pulmonic regurgitation. Pericardium No pericardial effusion. Aorta Normal size aortic root and proximal ascending aorta. CONCLUSIONS Left ventricular ejection fraction 50 to 55% RVSP 20 Trace to mild tricuspid regurgitation No pericardial effusion Previewed by: Dr. David Mckeon DO (Electronically Signed) Final Date: 07 Mar 2025 13:29
== END | disposition home or self-care (01) ==
LOC: RADECHMAIN 11:19
PROVIDERS: ATTEND Internal Medicine Hematology & Oncology
DX: Z01.818 Encounter for other preprocedural examination (principal); I36.1 Nonrheumatic tricuspid (valve) insufficiency; C50.811 Malignant neoplasm of overlapping sites of right female breast; G47.00 Insomnia, unspecified; G62.0 Drug-induced polyneuropathy; R53.82 Chronic fatigue, unspecified
CPT/HCPCS: 93306

== ENCOUNTER → 2025-03-07 | Outpatient (CLI) | payer MEDICARE, OTHER ==
--- NOTE | 2025-03-12 15:44 | PE ---
EXAMINATION TYPE: PET CT fusion skull to thigh DATE OF EXAM: 03/08/2025 COMPARISON: No recent pertinent CT Prior PET/CT: 11/08/2024 CLINICAL INDICATION: Female, 60 years old with history of C50.811 BREAST CANCER, TECHNIQUE: Following the intravenous administration of mCi of F-18 FDG, whole body images are perfor med PET CT fusion skull to thigh. Images are reviewed on the computer in the coronal, axial, and sag ittal planes. Reconstructed rotating images are created on independent workstation and reviewed on [facility] computer. A localization and attenuation correction CT is performed in conjunction with the PET scan. DLP: 921 mGycm SCAN: Subsequent Blood glucose: 87 mg/dL Average Mediastinum SUV: 2.42 Average Liver SUV: 2.7 FINDINGS: NECK: No suspicious uptake THORAX: Subtle mild uptake within the bilateral hilar regions was present previously. No suspicious u nderlying enlarged lymphadenopathy is identified. This is nonspecific and can be inflammatory or priya y metastasis. Right hilar image 80 SUV 3.3, previous 5.01. Left hilar image 83, SUV 3.29, previously 3.01. ABDOMEN: No suspicious uptake PELVIS: No suspicious uptake OSSEOUS STRUCTURES: No suspicious uptake. Sclerotic lesion anterior lateral left L1. Previous sclerot ic changes at T6 and T7 appear stable. No suspicious radiotracer uptake. LOCALIZATION CT: There is a small left pleural effusion. Bilateral breast prostheses are present. Thi s may be displaced on the left. COMPARISON: Findings appear similar to comparison. The uptake within the right hilar lymph node appea rs diminished from comparison. IMPRESSION: 1. No suspicious uptake to suggest metastatic neoplasm. 2. Right hilar uptake is diminished from comparison. 3. Osseous lesions appears stable without suspicious uptake [facility], , 03/12/2025 3:42 PM
== END | disposition home or self-care (01) ==
LOC: RADPETMAIN 11:30
PROVIDERS: ATTEND Internal Medicine Hematology & Oncology
DX: C50.811 Malignant neoplasm of overlapping sites of right female breast (principal); J90 Pleural effusion, not elsewhere classified
CPT/HCPCS: 78815; A9552